=== PATIENT | female | born 1960 | race Caucasian/White ===

== ENCOUNTER 2021-02-28 11:45 | Day surgery (SDC) | payer OTHER ==
[~2021-02-28] VITALS: Ht 165.1 cm; Wt 82.6 kg
[2021-02-28] MEDS ORDERED: MIDAZOLAM 5 MG/5 ML VIAL ONE (13:27)
[2021-02-28] MEDS ORDERED: diphenhydrAMINE 50 MG/ML VIAL ONE (13:27)
[2021-02-28] MEDS ORDERED: LIDOCAINE 2% 100 MG/5 ML UJET TP ONE ×2 (13:27→13:55)
[2021-02-28] MEDS ORDERED: fentaNYL citrate 0.05 MG/ML VIAL ONE (13:27)
[2021-02-28] MEDS ORDERED: fentaNYL citrate 0.05 MG/ML VIAL IVP ONE (13:55)
[2021-02-28] MEDS ORDERED: MIDAZOLAM 2 MG/2 ML VIAL IVP ONE (13:55)
== END 2021-02-28 13:00 | disposition home or self-care (01) ==
LOC: MDS 11:45 → MMU 11:56 → MDS 13:00
PROVIDERS: ATTEND Internal Medicine Gastroenterology
DX: Z12.11 Encounter for screening for malignant neoplasm of colon (principal); I10 Essential (primary) hypertension; E11.9 Type 2 diabetes mellitus without complications; E78.5 Hyperlipidemia, unspecified; Z79.84 Long term (current) use of oral hypoglycemic drugs; Z79.899 Other long term (current) drug therapy
CPT/HCPCS: 45378; J2250; J3010; J1200